=== PATIENT | female | born 1990 | race African-American/Black ===

== ENCOUNTER 2016-11-18 05:37 | Emergency (ER) | payer OTHER ==
[~2016-11-18] VITALS: Ht 170.2 cm; Wt 66.8 kg
[~2016-11-18 05:37] MED LIST: AMOXICILLIN 50500 MG PO; FLEXERIL 1010 MG/TAB PO; LIORESAL20 MG PO; MIRENA52 MG IY; MOTRIN 600600 MG/TAB PO; NEXPLANON68 MG ID; NORCO 325 MG-51 TAB PO; PERCOCET 325 MG1 TA2 PO; PRENTAL 1 PLUS1 TAB PO; VALIUM 5MG T5 MG/TAB PO
[2016-11-18 05:43] VITALS: BP 106/65; TEMP 99
[2016-11-18] MEDS ORDERED: OXTELLAR600 (05:43)
[2016-11-18 06:44] VITALS: PULSE 81
== END 2016-11-18 06:44 | disposition home or self-care (01) ==
LOC: COL.ER 05:37
DX: S80.11XA Contusion of right lower leg, initial encounter (principal); S60.512A Abrasion of left hand, initial encounter; S71.131A Puncture wound without foreign body, right thigh, initial encounter; W01.118A Fall on same level from slipping, tripping and stumbling with subsequent striking against other sharp object, initial encounter; Z23 Encounter for immunization

== ENCOUNTER 2016-12-17 16:42 | Emergency (ER) | payer OTHER ==
[~2016-12-17] VITALS: Ht 170.2 cm; Wt 67.3 kg
[~2016-12-17 16:42] MED LIST changes: +OXTELLAR600
[2016-12-17 16:46] VITALS: TEMP 98.9
[2016-12-17 17:56] LABS: BASO % 0.4 % (0.0-2.0); EOS # 0.1 (0.0-0.7); EOS % 1.5 % (0-4.0); GRAN # 3.9 (1.4-6.5); GRAN % 53.3 % (42.2-75.2); HEMATOCRIT 38.2 % (37.0-47.0); HEMOGLOBIN 12.9 g/dl (12.5-16.0); LYMPH # 2.6 (1.2-3.4); LYMPH % 36.4 % (20.0-51.0); MEAN CELL VOLUME 90 fl (80.0-100.0); MEAN CORPUSCULAR HEMOGLOBIN 30 pg (27.0-31.0); MEAN CORPUSCULAR HGB CONC 34 g/dl (33.0-37.0); MEAN PLATELET VOLUME 10.1 fl (7.4-10.4); MONO # 0.6 (0.1-0.6); MONO % 8.3 % (1.7-9.3); PLATELET COUNT 187 K/mm3 (130-400); RED BLOOD COUNT 4.27 M/mm3 (4.10-5.30); WHITE BLOOD COUNT 7.2 K/mm3 (4.8-10.8)
[2016-12-17 17:58] LABS: CREATININE, serum 0.85 mg/dL (0.52-1.25); POTASSIUM 3.7 mmol/L (3.4-5.0)
[2016-12-17 18:09] LABS: PH 6 (5-8); URINE APPEARANCE Hazy; URINE BACTERIA None Seen /hpf; URINE BILIRUBIN Negative (NEGATIVE); URINE BLOOD Negative (NEGATIVE); URINE COLOR Yellow; URINE GLUCOSE Negative (NEGATIVE); URINE KETONE Negative (NEGATIVE); URINE UROBILINOGEN Negative (NEGATIVE); URINE WBC 0-2 /hpf
[2016-12-17 19:08] VITALS: BP 127/52; PULSE 66
== END 2016-12-17 19:01 | disposition home or self-care (01) ==
LOC: COL.ER 16:42
PROVIDERS: Physician Assistant
DX: E86.0 Dehydration (principal); R51 Headache; R42 Dizziness and giddiness; G43.909 Migraine, unspecified, not intractable, without status migrainosus
CPT/HCPCS: J1885; J2405; J7030